=== PATIENT | female | born 1970 | race Hispanic/Latino ===

== ENCOUNTER 2019-05-19 18:12 | Inpatient (IN) | payer OTHER ==
[~2019-05-19] VITALS: Ht 157.5 cm; Wt 59.9 kg
[2019-05-19 18:57] LABS: BILIRUBIN,URINE NEGATIVE (NEGATIVE); CLARITY,URINE SL CLOUDY (CLEAR); COLOR,URINE YELLOW (YELLOW); KETONES,URINE NEGATIVE (NEGATIVE); LEUKOCYTE ESTERASE ,URINE NEGATIVE (NEGATIVE); NITRITE,URINE NEGATIVE (NEGATIVE); PROTEIN,URINE DIPSTICK 1+ (NEGATIVE); URINE UROBILINOGEN 0.2 mg/dL (0.2 - 1)
[2019-05-19 19:01] LABS: RBC,URINE >50 /HPF (0-5)
[2019-05-19 19:02] LABS: BACTERIA,URINE FEW /HPF; EPITHELIAL CELLS,URINE MODERATE /LPF
[2019-05-19 19:17] LABS: BASOPHILS # (AUTO) 0.1 (0.0-0.1); BASOPHILS % 0.6 % (0.0-1.0); EOSINOPHILS # (AUTO) 0.4 (0.0-0.4); EOSINOPHILS % 4.2 % (0.0-6.0); HEMATOCRIT 40.4 % (34.2-44.1); HEMOGLOBIN 13.9 g/dL (12.0-16.0); LYMPHOCYTES # (AUTO) 1.9 (1.0-3.2); LYMPHOCYTES % 21.2 % (18.0-39.1); MEAN CORPUSCULAR HEMOGLOBIN 29.2 pg (28-32); MEAN CORPUSCULAR HGB CONC 34.4 g/dL (31-35); MEAN CORPUSCULAR VOLUME 84.9 fL (81-99); MONOCYTES # (AUTO) 0.6 (0.2-0.8); MONOCYTES % 6.2 % (4.4-11.3); NEUTROPHILS % 67.6 % (38.7-80.0); PLATELET COUNT 331 x10e3/uL (140-360); RED BLOOD COUNT 4.76 x10e6/uL (3.6-5.1); RED CELL DISTRIBUTION WIDTH 12.6 % (11.7-14.4)
[2019-05-19 19:37] LABS: ALANINE AMINOTRANSFERASE 55 IU/L (0-55); ALBUMIN 4.2 g/dL (3.5-5.0); ALBUMIN/GLOBULIN RATIO 1.1 (0.8-2.0); ALKALINE PHOSPHATASE 122 IU/L (40-150); ANION GAP 13.7 mmol/L (8-16); BLOOD UREA NITROGEN 20 mg/dL (7-26); BUN/CREATININE RATIO 26 (6-25); CALCIUM 9.9 mg/dL (8.4-10.2); CARBON DIOXIDE 26 mmol/L (22-29); CHLORIDE 105 mmol/L (98-107); CREATININE, SERUM 0.76 mg/dL (0.57-1.11); EST GLOMERULAR FILTRATION RATE > 60 ML/MIN (60-); GLUCOSE 125 mg/dL (74-118); LIPASE 19 U/L (8-78); POTASSIUM 3.7 mmol/L (3.5-5.1); SODIUM 141 mmol/L (136-145)
[2019-05-19] MEDS ORDERED: KETOROLAC TROMETHAMINE 30 MG/ML VIAL IV ONE (19:45)
[2019-05-19] MEDS ORDERED: ONDANSETRON HCL INJ 2MG/ML 2ML 2 MG/ML VIAL IV ONE (20:00)
--- NOTE | 2019-05-19 20:18 | Diagnostic Imaging Report ---
EXAM: CT Abdomen and Pelvis WITHOUT contrast INDICATION: Right lower quadrant pain. Hematuria. COMPARISON: None. TECHNIQUE: Abdomen and pelvis were scanned utilizing a multidetector helical scanner from the lung base to the pubic symphysis without administration of IV contrast. Absence of intravenous contrast decreases sensitivity for detection of focal lesions and vascular pathology. Coronal and sagittal reformations were obtained. Renal stone protocol was performed. IV CONTRAST: None. ORAL CONTRAST: Water RADIATION DOSE: Total DLP: 252.19 mGy*cm Estimated effective dose: (DLP x 0.015 x size factor) mSv COMPLICATIONS: None FINDINGS: LINES and TUBES: None. LOWER THORAX: Left basilar atelectasis versus pleural parenchymal scarring posteriorly. HEPATOBILIARY: No focal hepatic lesions. No biliary ductal dilation. GALLBLADDER: Minimally hydropic, nonspecific. No radio-opaque stones or sludge. No wall thickening. SPLEEN: No splenomegaly. PANCREAS: No focal masses or ductal dilatation. ADRENALS: No adrenal nodules KIDNEYS/URETERS: 7 mm obstructing calculus in the proximal right ureter on image 84 series 3 resulting in mild proximal right hydroureter and hydronephrosis. 5 mm nonobstructing calculus in the interpolar region of the left kidney on image 51. 4 mm nonobstructing calculus in the lower pole of the left kidney on images 64 series 3. No left-sided hydronephrosis. No cystic or solid mass lesions. GI TRACT: No abnormal distention, wall thickening, or evidence of bowel obstruction. There are diverticula within the colon without evidence of diverticulitis. Appendix is normal. PELVIC ORGANS/BLADDER: Prominent uterus without focal measurable abnormality. LYMPH NODES: No lymphadenopathy. VESSELS: Unremarkable. PERITONEUM / RETROPERITONEUM: No free air or fluid. BONES: Superior endplate Schmorl node at L1 resulting in mild loss of upper vertebral body height. SOFT TISSUES: Unremarkable. IMPRESSION: 1. 7 mm obstructing calculus in the proximal right ureter resulting in mild proximal right hydroureteronephrosis. 2. Two eft nonobstructing renal calculi. Signed by: Dr. Greer Olivera M.D. on 05/19/2019 8:15 PM
[2019-05-19] MEDS ORDERED: HYDROMORPHONE 1MG/1ML INJ IV PRN (20:30)
[2019-05-19] MEDS ORDERED: ONDANSETRON HCL INJ 2MG/ML 2ML 2 MG/ML VIAL IV PRN (20:30)
--- OUTSIDE RECORDS SUMMARY | 2019-05-19 20:39 | XMS REPORT ---
[facility] Address Unknown Phone Unavailable Care Team Providers Care Timekeeping Supervisor Name Role Phone Morales MARTINEZ Unavailable Unavailable Problems This patient has no known problems. Allergies, Adverse Reactions, Alerts This patient has no known allergies or adverse reactions. Medications This patient has no known medications. Results Test Description Test Time Test Comments Text Results Atomic Results Result Comments CT ABDOMEN/PELVIS WO 2019-05-19 20:09:00 [place] [address] Patient Name: IZABEL PATEL MR #: [id number] : 1970 Age/Sex: 49/F Req #: [id number] Adm Physician: Ordered by: SHANIQUE STEWART MD Report #: [id number] Location: ER Room/Bed: Procedure: [id number] CT/CT ABDOMEN/PELVIS WO Exam Date: Exam Time: REPORT STATUS: Signed EXAM: CT Abdomen and Pelvis WITHOUT contrast INDICATION: Right lower quadrant pain. Hematuria. COMPARISON: None. TECHNIQUE: Abdomen and pelvis were scanned utilizing a multidetector helical scanner from the lung base to the pubic symphysis without administration of IV contrast. Absence of intravenous contrast decreases sensitivity for detection of focal lesions and vascular pathology. Coronal and sagittal reformations were obtained. Renal stone protocol was performed. IV CONTRAST: None. ORAL CONTRAST: Water RADIATION DOSE: Total DLP: 252.19 mGy*cm Estimated effective dose: (DLP x 0.015 x size factor) mSv COMPLICATIONS: None FINDINGS: LINES and TUBES: None. LOWER THORAX: Left basilar atelectasis versus pleural parenchymal scarring posteriorly. HEPATOBILIARY: No focal hepatic lesions. No biliary ductal dilation. GALLBLADDER: Minimally hydropic, nonspecific. No radio- opaque stones or sludge. No wall thickening. SPLEEN: No splenomegaly. PANCREAS: No focal masses or ductal dilatation. ADRENALS: No adrenal nodules KIDNEYS/URETERS: 7 mm obstructing calculus in the proximal right ureter on image 84 series 3 resulting in mild proximal right hydroureter and hydronephrosis. 5 mm nonobstructing calculus in the interpolar region of the left kidney on image 51. 4 mm nonobstructing calculus in the lower pole of the left kidney on images 64 series 3. No left-sided hydronephrosis. No cystic or solid mass lesions. GI TRACT: No abnormal distention, wall thickening, or evidence of bowel obstruction. There are diverticula within the colon without evidence of diverticulitis. Appendix is normal. PELVIC ORGANS/BLADDER: Prominent uterus without focal measurable abnormality. LYMPH NODES: No lymphadenopathy. VESSELS: Unremarkable. PERITONEUM / RETROPERITONEUM: No free air or fluid. BONES: Superior endplate Schmorl node at L1 resulting in mild loss of upper vertebral body height. SOFT TISSUES: Unremarkable. IMPRESSION: 1. 7 mm obstructing calculus in the proximal right ureter resulting in mild proximal right hydroureteronephrosis. 2. Two eft nonobstructing renal calculi. Signed by: Dr. Greer Hess M.D. on 05/19/2019 8:15 PM Dictated By: WAYNE HESS MD, MD 14 Transcribed By: ELAYNE on 05/19/192014 COPY TO: SHANIQUE STEWART MD
[2019-05-19 21:30] VITALS: BP 144/66
[2019-05-19] MEDS: SODIUM CHLORIDE 0.9% 1000ML 1,000 ML IV SCH (21:30)
[2019-05-19] MEDS: CEFTRIAXONE SOD 1 GM/NS 50 ML 50 ML IV SCH (21:30)
--- NOTE | 2019-05-19 21:30 | NUR ---
PATIENT RECEIVED FROM ER. PATIENT IS AAOX3, REP EVEN AND UNLABORED. PATIENT STATED THAT SHE HAS BEEN HAVING RIGHT QUADRANT PAIN RADIATING TO RIGHT HIP FOR 12 DAYS. DENIES OF PAIN AT THIS TIME. ORIENTED TO ROOM. SON AT BED SIDE. BED LOW/LOCKED. CALL LIGHT WITHIN REACH. CONTINUE TO MONITOR CLOSELY
[2019-05-20] VITALS (8 sets, daily range): BP systolic 126–145; BP diastolic 56–62
[2019-05-20] MEDS: SODIUM CHLORIDE 0.9% 1000ML 1,000 ML IV SCH ×2 (05:32→16:32)
[2019-05-20 05:52] LABS: BASOPHILS % 0.5 % (0.0-1.0); EOSINOPHILS # (AUTO) 0.3 (0.0-0.4); EOSINOPHILS % 4.1 % (0.0-6.0); HEMATOCRIT 37.3 % (34.2-44.1); HEMOGLOBIN 12.3 g/dL (12.0-16.0); LYMPHOCYTES % 25.5 % (18.0-39.1); MEAN CORPUSCULAR HEMOGLOBIN 28.9 pg (28-32); MEAN CORPUSCULAR VOLUME 87.8 fL (81-99); MONOCYTES # (AUTO) 0.6 (0.2-0.8); MONOCYTES % 7.7 % (4.4-11.3); NEUTROPHILS # (AUTO) 4.8 (2.1-6.9); NEUTROPHILS % 61.8 % (38.7-80.0); PLATELET COUNT 289 x10e3/uL (140-360); RED BLOOD COUNT 4.25 x10e6/uL (3.6-5.1)
[2019-05-20 06:18] LABS: ANION GAP 11.1 mmol/L (8-16); BLOOD UREA NITROGEN 18 mg/dL (7-26); BUN/CREATININE RATIO 30 (6-25); CALCIUM 8.8 mg/dL (8.4-10.2); CARBON DIOXIDE 22 mmol/L (22-29); CHLORIDE 111 mmol/L (98-107); CREATININE, SERUM 0.61 mg/dL (0.57-1.11); EST GLOMERULAR FILTRATION RATE > 60 ML/MIN (60-); GLUCOSE 99 mg/dL (74-118); POTASSIUM 4.1 mmol/L (3.5-5.1); SODIUM 140 mmol/L (136-145)
--- NOTE | 2019-05-20 07:30 | NUR ---
Received patient this morning, a/ox3, no resp distress, denies any pains, call light within reach, will continue to strain urine at this time
--- NOTE | 2019-05-20 09:28 | NUR ---
Patient VSS, no c/o pains, rounds by urologist and orders for KUB in place, may go ahead and upgrade diet at this time, will monitor and continue to strain urine.
--- NOTE | 2019-05-20 10:40 | Diagnostic Imaging Report ---
Exam: KUB - 2 views Clinical History: Nephrolithiasis. Comparison: CT Abdomen/Pelvis 05/19/2019. Findings: There is a 7 mm calcification in the expected location of the right proximal ureter at the level of the right lower L4 vertebral body, unchanged compared to prior CT. Nonobstructive bowel gas pattern. No acute bony abnormality. Impression: A 7 mm right proximal ureteral stone at the level of the right lower L4 vertebral body, unchanged compared to prior CT. Signed by: Dr. Matilde Aguila MD on 05/20/2019 10:36 AM
--- NOTE | 2019-05-20 14:55 | Consultation ---
DATE OF CONSULTATION: 05/20/2019 Urology Consultation Consultation is called by Dr. Joaquin in the emergency room. CHIEF UROLOGIC COMPLAINT AND REASON FOR RECONSULTATION: ureterolithiasis. HISTORY OF PRESENT ILLNESS: Ms. Collazo is a 49-year-old female, admitted to the hospital with right-sided flank pain, sharp, severe, 10/10. Denied dysuria. Denied fevers. No chills. PAST MEDICAL HISTORY: Denied urologic. MEDICATIONS: Please see MAR. ALLERGIES: NKDA. SOCIAL HISTORY: No smoking or drinking. FAMILY HISTORY: Denied urologic stones or malignancies. REVIEW OF SYSTEMS: Noncontributory other than problems mentioned above for 12-organ systems. PHYSICAL EXAMINATION: GENERAL: A middle-aged female, in no acute distress. VITAL SIGNS: Currently, temperature 97.8, pulse 62, respirations 18, and blood pressure 130/60. BMI of 24.14. HEENT: Sclerae anicteric. NECK: Supple. BACK: Without costovertebral angle tenderness bilaterally. ABDOMEN: Soft. It is nontender. It is nondistended. No palpable mass. No palpable hernias. No palpable adenopathy. : Normal female genitalia. EXTREMITIES: No edema. NEURO: Moves all 4 extremities. PSYCH: Alert. Mood appropriate. SKIN: Intact. Normal color. PERTINENT LABORATORY DATA: Sodium 140, potassium of 4.1, chloride 111, bicarb 22, BUN 18, creatinine 0.61, and glucose 99. Hemoglobin 12, hematocrit 37, platelet count 289,000, and white blood cell count 7830. Urinalysis; greater than 50 reds, [address] scan revealing a 7 mm right UPJ stone, right hydronephrosis, 5 mm left middle pole stone, 4 mm left lower pole stone. IMPRESSION: 1. Left kidney stone. 2. Right ureteral stone. 3. Right hydronephrosis. 4. Right renal colic. 5. Urinary tract infection. 6. Microscopic hematuria. 7. Hypertension. PLAN: Employ a brief trial of passage. Should this fail, the patient will likely need stenting. Treatment for urinary tract infection, the patient will need staged first right and left management of the stones. Thank you for allowing me to participate in the care of your patient. We will be happy to follow along with you. MD KELLI Munson/MODL /[id number]
--- NOTE | 2019-05-20 17:56 | NUR ---
Patient alert and responsive, OOB and ambulated, tolerated GI soft diet, no N/V, no c/o pains today, fluids still running, call light within reach, will monitor.
--- NOTE | 2019-05-20 18:56 | NUR ---
Call from Dr. Maldonado and orders in place to obtain consent for cystoscopy and retrograde with pyelogram for tomorrow. Reported to on coming nurse and to inform dimension warehouse supervisor to schedule procedure and call him on his cell phone and notify him.
--- NOTE | 2019-05-20 19:30 | NUR ---
NOTIFIED ACCREDITATION COORDINATOR TO SCHEDULE PROCEDURE. ACCREDITATION COORDINATOR CONTACTED CORE MACHINE OPERATOR AND DOCTOR YENY
[2019-05-20] MEDS: CEFTRIAXONE SOD 1 GM/NS 50 ML 50 ML IV SCH (19:52)
[2019-05-21] VITALS (7 sets, daily range): BP systolic 113–124; BP diastolic 49–78
[2019-05-21] MEDS: SODIUM CHLORIDE 0.9% 1000ML 1,000 ML IV SCH ×2 (00:30→04:30)
[2019-05-21] MEDS ORDERED: IOPAMIDOL 300MG/ML 50ML INFUS..BTL IV ONE (06:14)
--- NOTE | 2019-05-21 06:15 | NUR ---
PATIENT LEFT UNIT FOR SURGERY
--- NOTE | 2019-05-21 07:51 | NUR ---
PT BACK AFTER PROCEDURE PT IS ALERT AND ORIENTED VITALS CHECKED PT RESTING ON BED FAMILY AT BED SIDE BED LOW AND LOCKED CALL LIGHT IN REACH
--- NOTE | 2019-05-21 11:40 | NUR ---
PAGED AND TALKED DR LEDESMA REGARDING DISCHARGE GOT THE DISCHARGE ORDER
[2019-05-21] MEDS ORDERED: TYLENOL WITH C1 EACH PO (12:28)
[2019-05-21] MEDS ORDERED: LEVAQUIN500 MG PO (12:29)
--- NOTE | 2019-05-21 13:00 | NUR ---
PT WENT HOME IN SAFE CONDITION WITH HER
--- NOTE | 2019-05-21 15:31 | Operative Report ---
DATE OF PROCEDURE: 05/21/2019 SURGEON: Roger Maldonado MD PREOPERATIVE DIAGNOSES: 1. Microscopic hematuria. 2. Right-sided hydronephrosis. POSTOPERATIVE DIAGNOSES: 1. Microscopic hematuria. 2. Right-sided hydronephrosis. PROCEDURES: 1. Cystourethroscopy with insertion of a right indwelling stent (entirely separate procedure for diagnosis of right hydronephrosis). 2. Cystourethroscopy with left ureter catheterization and left retrograde pyelogram (separate procedure for diagnosis of microscopic hematuria). 3. Supervision of fluoroscopy. 4. Interpretation of retrograde pyelography. ANESTHESIA: General. ESTIMATED BLOOD LOSS: Minimal. COMPLICATIONS: None. INDICATIONS FOR PROCEDURE: Ms. Collazo is a very pleasant 49-year-old female with a history of intractable right colic, found to have an 8 mm right proximal ureteral stone. She and I had a long discussion about alternatives, risks and benefits of doing nothing, stent placement, and nephrostomy. She voiced understanding of the options, alternatives, risks, and benefits of the procedure. PROCEDURE IN DETAIL: After informed consent was obtained, the patient was taken to the operative suite, placed in the dorsal lithotomy position. Sterilely prepped and draped with cystoscopy. A 21-Emirati cystoscope was inserted per urethra, normal size noted. Panendoscopy of the bladder revealed no tumors, no stones. Both ureteral orifices were in normal anatomic location and position seen with Efflux clear urine, but bilateral retrograde pyelogram performed. The left was normal. The right revealed an 8 mm proximal renal calculus, proximal hydronephrosis. Ureteral stent was deployed with a coil in the renal pelvis and a coil bladder on the right side, 6 x 24 cm. The bladder was drained. The patient was awakened anesthesia and transported to the recovery room in excellent condition. Supervision of fluoroscopy and interpretation of retrograde pyelography: I was present for the entire procedure and supervised fluoroscopy. There was no radiologist present. Attention was turned to the left and right ureters, which were catheterized with a 5-Emirati open-ended catheter. Retrograde pyelogram was performed revealing on left side delicate ureter, delicate pelvocaliceal systems. On the right side, an 8 mm proximal filling defect and proximal hydronephrosis. IMPRESSION: Right 8 mm proximal ureteral calculus with hydronephrosis. Postoperative views on the right side of the stent in adequate position, left side normal. MD KELLI Munosn/NICA /[id number]
[2019-05-21] MEDS ORDERED: MIDAZOLAM HCL 2 MG/2 ML VIAL ONE (18:12)
[2019-05-21] MEDS ORDERED: FENTANYL CITRATE/PF 100MCG/2 ML INJ ONE (18:12)
[2019-05-21] MEDS ORDERED: SEVOFLURANE INHAL SOLN 250 ML PEN BTL ONE (18:13)
[2019-05-21] MEDS ORDERED: LIDOCAINE HCL 2% LOCAL INJ 5 ML SDV VIAL INJ ONE (18:13)
[2019-05-21] MEDS ORDERED: ONDANSETRON HCL INJ 2MG/ML 2ML 2 MG/ML VIAL ONE (18:13)
[2019-05-21] MEDS ORDERED: LIDOCAINE HCL 2% JELLY 5 ML TUBE ONE (18:13)
[2019-05-21] MEDS ORDERED: DEXAMETHASONE SOD PHOS INJ 4 MG/ML VIAL ONE (18:13)
[2019-05-21] MEDS ORDERED: PROPOFOL IV EMULSION 10 MG/ML 20 ML VIAL ONE (18:13)
== END 2019-05-21 12:58 | disposition home or self-care (01) | DRG 661 ==
LOC: ER 18:12 → ERHOLD 20:33 → MED/SURG2 21:13
PROVIDERS: ADMIT Internal Medicine; ATTEND Internal Medicine
PROC: BT141ZZ Fluoroscopy of Kidneys, Ureters and Bladder using Low Osmolar Contrast (ICD-10-PCS; 2019-05-21)
PROC: 0T788DZ Dilation of Bilateral Ureters with Intraluminal Device, Via Natural or Artificial Opening Endoscopic (ICD-10-PCS; principal; 2019-05-21 06:46)
DX: N13.6 Pyonephrosis (principal); R31.29 Other microscopic hematuria; N39.0 Urinary tract infection, site not specified; I10 Essential (primary) hypertension
CPT/HCPCS: 36415; 74018; 74176; 74420; 80048; 80053; 81001; 81025; 83690; 85025; 87086; 87186; 99284; C2617; J0696; J1100; J1885; J2001; J2250; J2405; J3010; J7030

== ENCOUNTER 2019-06-18 20:58 | Emergency (ER) | payer OTHER ==
[~2019-06-18] VITALS: Ht 157.5 cm; Wt 59.9 kg
[~2019-06-18 20:58] MED LIST: ACETAMINOPHEN650 M1 PO; LEVAQUIN500 MG PO; TYLENOL WITH C1 EACH PO
[2019-06-18 21:31] LABS: BILIRUBIN,URINE NEGATIVE (NEGATIVE); CLARITY,URINE SL CLOUDY (CLEAR); COLOR,URINE YELLOW (YELLOW); KETONES,URINE NEGATIVE (NEGATIVE); LEUKOCYTE ESTERASE ,URINE TRACE (NEGATIVE); NITRITE,URINE NEGATIVE (NEGATIVE); PROTEIN,URINE DIPSTICK TRACE (NEGATIVE); URINE UROBILINOGEN 0.2 mg/dL (0.2 - 1)
[2019-06-18 21:44] LABS: BACTERIA,URINE RARE /HPF; RBC,URINE 21-50 /HPF (0-5); WBC,URINE (MAN) 0-5 /HPF (0-5)
[2019-06-18 23:07] LABS: BASOPHILS # (AUTO) 0.1 (0.0-0.1); BASOPHILS % 0.8 % (0.0-1.0); EOSINOPHILS # (AUTO) 0.4 (0.0-0.4); EOSINOPHILS % 3.4 % (0.0-6.0); HEMATOCRIT 42.7 % (34.2-44.1); HEMOGLOBIN 14.4 g/dL (12.0-16.0); LYMPHOCYTES # (AUTO) 2.5 (1.0-3.2); LYMPHOCYTES % 21.2 % (18.0-39.1); MEAN CORPUSCULAR HEMOGLOBIN 29.4 pg (28-32); MEAN CORPUSCULAR HGB CONC 33.7 g/dL (31-35); MEAN CORPUSCULAR VOLUME 87.1 fL (81-99); MONOCYTES # (AUTO) 0.8 (0.2-0.8); MONOCYTES % 6.6 % (4.4-11.3); NEUTROPHILS # (AUTO) 7.9 (2.1-6.9); NEUTROPHILS % 67.7 % (38.7-80.0); PLATELET COUNT 393 x10e3/uL (140-360); RED CELL DISTRIBUTION WIDTH 13.1 % (11.7-14.4)
[2019-06-18 23:26] LABS: ALANINE AMINOTRANSFERASE 12 IU/L (0-55); ALBUMIN 4.3 g/dL (3.5-5.0); ALBUMIN/GLOBULIN RATIO 1.3 (0.8-2.0); ALKALINE PHOSPHATASE 97 IU/L (40-150); ANION GAP 13.3 mmol/L (8-16); BLOOD UREA NITROGEN 14 mg/dL (7-26); BUN/CREATININE RATIO 22 (6-25); CALCIUM 9.7 mg/dL (8.4-10.2); CARBON DIOXIDE 23 mmol/L (22-29); CHLORIDE 105 mmol/L (98-107); CREATININE, SERUM 0.65 mg/dL (0.57-1.11); EST GLOMERULAR FILTRATION RATE > 60 ML/MIN (60-); GLUCOSE 97 mg/dL (74-118); POTASSIUM 3.3 mmol/L (3.5-5.1); SODIUM 138 mmol/L (136-145)
== END 2019-06-19 00:51 | disposition home or self-care (01) ==
LOC: ER 20:58
DX: R10.2 Pelvic and perineal pain (principal); R10.813 Right lower quadrant abdominal tenderness; N30.91 Cystitis, unspecified with hematuria
CPT/HCPCS: 36415; 80053; 81001; 85025; 99283